=== PATIENT | male | born 2000 | race Caucasian/White ===

== ENCOUNTER 2024-05-03 09:31 | Emergency (ER) | payer MEDICAID ==
[~2024-05-03] VITALS: Ht 180.3 cm; Wt 93.0 kg
[2024-05-03 09:48] VITALS: BP 139/75; PULSE 117; RESP 16; O2SAT 98
[2024-05-03] MEDS ORDERED: AMOX-117 PO (10:56)
[2024-05-03 11:49] VITALS: TEMP 100.2
== END 2024-05-03 11:50 | disposition home or self-care (01) ==
LOC: ER 09:32 → EDBD 09:32 → ER 11:50
DX: J32.8 Other chronic sinusitis (principal); Z91.010 Allergy to peanuts; Z91.018 Allergy to other foods
CPT/HCPCS: 99283; J7030